=== PATIENT | female | born 1960 ===

== ENCOUNTER 2017-11-26 06:10 | Day surgery (SDC) | payer BC ==
[2017-01-01 09:01] VITALS: BMI 30.2
[2017-11-26] MEDS ORDERED: Propofol 10 mg/ml Inj (20 ML) ONE (07:27)
[2017-11-26] MEDS ORDERED: cefOXitin IV 1 gm in Dextrose 1 GM/50 ML BAG IVPB ONE (07:42)
[2017-11-26] MEDS ORDERED: Midazolam 2 MG/2 ML VIAL ONE (07:48)
[2017-11-26] MEDS ORDERED: HYDROmorphone 0.5 mg/0.5 ml ISec IVP PRN (08:39)
--- NOTE | 2017-11-26 09:15 | PCM.SURG1 ---
Surgeon's Initial Post Op Note - Surgeon's Notes Surgeon: dr arguelles Baker Laboratory: none Type of Anesthesia: General LMA Anesthesia Administered By: dr rascon Pre-Operative Diagnosis: 57 yr with endometrial thickening r/o pmb Operative Findings: see the op reort Post-Operative Diagnosis: endometrial polyp Operation Performed: myasure d&c, hysterscopy Specimen/Specimens Removed: ecc. emc. polyp Estimated Blood Loss: EBL {In ML}: 20 Blood Products Given: N/A Drains Used: No Drains Post-Op Condition: Good Date of Surgery/Procedure: 11/26/17 Time of Surgery/Procedure: 10:00
[2017-11-26 11:16] VITALS: RESP 15; TEMP 97.2
[2017-11-26 11:55] VITALS: BP 111/52; PULSE 66; O2SAT 98
--- NOTE | 2017-11-27 07:26 | OP ---
PROCEDURE DATE: PREOPERATIVE DIAGNOSIS: A 57-year-old 3, para 3 with endometrial thickening, postmenopausal bleeding. POSTOPERATIVE DIAGNOSIS: A 57-year-old 3, para 3 with endometrial thickening, postmenopausal bleeding. SURGEON: Manuel Cheek MD GREENHOUSE ASSISTANT: None. TYPE OF ANESTHESIA: General anesthesia. ANESTHESIOLOGIST: Dr. Santiago Cifuentes. COMPLICATIONS: None. PROCEDURE: MyoSure, D and C, cystoscopy. ESTIMATED BLOOD LOSS: 20 mL. DESCRIPTION OF PROCEDURE: After informed consent was obtained, the patient was brought to the operating room, placed on the table where general anesthesia was given. Once the anesthesia was found to be adequate, the patient was prepped and draped in the normal sterile fashion. Examination found the uterus to be 8 week size. No pelvic or adnexal masses. Anterior lip of the cervix was grasped with a tenaculum. Gentle dilatation of the cervix was done. Then there was a polyp on the posterior wall of the uterus, close to the fundus. Pictures were taken and MyoSure was used to take out the polyp which was removed and sharp curettage of all the fontaine of the uterus was done. ECC and EMC were sent to pathology. Then the tenaculum was taken out from the anterior lip of the cervix. The patient tolerated the procedure well. Lap, sponge, and instruments were corrected x2. Manuel Cheek MD
== END 2017-11-26 11:25 | disposition home or self-care (01) ==
LOC: C.SDS 06:10
PROVIDERS: ATTEND Obstetrics & Gynecology
DX: N95.0 Postmenopausal bleeding (principal); N84.0 Polyp of corpus uteri
CPT/HCPCS: 58558; 88305; J0694; J1885; J2001; J2250; J2405; J2704; J2765; J3010